=== PATIENT | male | born 1975 | race Caucasian/White ===

== ENCOUNTER 2021-09-24 15:01 | Emergency (ER) | payer OTHER ==
[~2021-09-24] VITALS: Ht 167.6 cm; Wt 81.7 kg
--- OUTSIDE RECORDS SUMMARY | 2021-09-24 15:04 | XMS ---
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 EAriela VISIT COUNT (12 MO.) 1 MARELY Will TOTAL 1 NOTE: Visits indicate total known visits. ED/UCC VISIT TRACKING (12 MO.) 09/24/2021 15:02 MARELY Garcia OR TYPE: Emergency COMPLAINT: - LT WRIST INJURY INPATIENT VISIT TRACKING (12 MO.) No inpatient visits to display in this time frame [email or web address]
[2021-09-24] MEDS ORDERED: LISINOPRIL-HCT1 EACH PO (15:19)
[2021-09-24] MEDS ORDERED: ALPRAZOLAM1 MG PO (15:19)
== END 2021-09-24 17:15 | disposition home or self-care (01) ==
LOC: ED 15:01
DX: S69.92XA Unspecified injury of left wrist, hand and finger(s), initial encounter (principal); Y04.8XXA Assault by other bodily force, initial encounter; I10 Essential (primary) hypertension; Z88.8 Allergy status to other drugs, medicaments and biological substances; Z79.899 Other long term (current) drug therapy
CPT/HCPCS: 73130; 99283-25

== ENCOUNTER 2024-10-17 06:45 | Emergency (ER) | payer OTHER ==
[~2024-10-17] VITALS: Ht 167.6 cm; Wt 80.2 kg
[~2024-10-17 06:45] MED LIST: ALPRAZOLAM1 MG PO; LISINOPRIL-HCT1 EACH PO; METFORMIN HCL500 MG; NORVASC10 MG PO; PREDNISONE20 MG PO
[2024-10-17] MEDS ORDERED: VENLAFAXINE HCL75 MG PO (07:27)
[2024-10-17] MEDS ORDERED: GABAPENTIN300 MG PO (07:27)
[2024-10-17 09:12] VITALS: BP 151/86
== END 2024-10-17 09:12 | disposition home or self-care (01) ==
LOC: ED 06:45
DX: S40.011A Contusion of right shoulder, initial encounter (principal); I10 Essential (primary) hypertension; W22.01XA Walked into wall, initial encounter; Z79.899 Other long term (current) drug therapy; Z79.52 Long term (current) use of systemic steroids
CPT/HCPCS: 73030; 99283

== ENCOUNTER 2025-02-09 05:28 | Day surgery (SDC) | payer OTHER ==
[~2025-02-09] VITALS: Ht 170.2 cm; Wt 75.0 kg
[~2025-02-09 05:28] MED LIST changes: +ALLER-TEC10 MG PO; +GABAPENTIN300 MG PO; +LACTATED RINGER'S 1,000 ML IV SCH; +VENLAFAXINE HCL75 MG PO; +VITAMIN B12500 MCG PO; +VITAMIN D3125 MC1 PO
[2025-02-09 06:05] VITALS: BP 141/74
--- NOTE | 2025-02-09 06:16 | NUR ---
DAD WITH PT .
[2025-02-09] MEDS ORDERED: DEXAMETHASONE SOD PHOS 10 MG/ML VIAL ONE (06:26)
[2025-02-09] MEDS ORDERED: Ropivacaine HCl 0.5% 30 ML VIAL ONE (06:29)
[2025-02-09] MEDS ORDERED: MIDAZOLAM HCL 2 MG/2 ML VIAL ONE (06:29)
[2025-02-09] MEDS ORDERED: LIDOCAINE HCL 2% 20 MG/ML VIAL INJ ONE (06:29)
[2025-02-09] MEDS ORDERED: fentaNYL citrate 100 MCG/2 ML VIAL ONE (06:29)
[2025-02-09] MEDS ORDERED: CEFAZOLIN SODIUM 2 GM in SODIUM CHLORIDE 0.9% 100 ML IV SCH (07:00)
[2025-02-09] MEDS ORDERED: LIDOCAINE HCL 1% 5 ML SDV INJ ONE (07:00)
[2025-02-09] MEDS ORDERED: IBLOOD GLUCOSE TEST STRIP 1 EA TEST VI PRN ×2 (07:00→07:30)
[2025-02-09] MEDS ORDERED: HYDROCODONE/ACETA 7.5/325 TAB PO PRN (07:00)
[2025-02-09] MEDS ORDERED: TRANEXAMIC ACID IN NACL,ISO-OS 1,000 MG/100 ML PIGGYBACK IV SCH (07:00)
[2025-02-09] MEDS ORDERED: NALOXONE HCL 0.4 MG SYR IV PRN (07:30)
[2025-02-09] MEDS ORDERED: fentaNYL citrate 50 MCG/ML SDV IV PRN (07:30)
[2025-02-09] MEDS ORDERED: PROCHLORPERAZINE EDISYLATE 10 MG/2 ML VIAL IV PRN (07:30)
[2025-02-09] MEDS ORDERED: HYDROmorphone HCL 1 MG/ML SYR IV PRN (07:30)
[2025-02-09] MEDS ORDERED: VASOPRESSIN 20 UNITS/ML VIAL ONE (07:48)
[2025-02-09] MEDS ORDERED: LACTATED RINGER'S 1,000 ML IV ONE (08:06)
[2025-02-09] MEDS ORDERED: HYDROCODON-ACE1 EA11 PO (08:14)
[2025-02-09] MEDS ORDERED: DICLOFENAC SODI75 MG PO (08:14)
[2025-02-09] MEDS ORDERED: DICLOFENAC SOD 75 MG TABEC PO SCH (09:00)
[2025-02-09 09:02] VITALS: BP 152/76
--- NOTE | 2025-02-09 09:20 | NUR ---
DAD AT BS. CALL LIGHT GIVEN.
--- NOTE | 2025-02-09 09:47 | OR ---
[facility] [address], [place] [address] Signed DATE OF OPERATION: 02/09/2025 SURGEON: Hanh Sutton MD PREOPERATIVE DIAGNOSIS: Rotator cuff tear, right shoulder. POSTOPERATIVE DIAGNOSIS: Rotator cuff tear, right shoulder. PROCEDURE PERFORMED: Right shoulder arthroscopy with arthroscopic rotator cuff repair. 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 ANESTHESIA: General. BLOOD LOSS: Minimal. IMPLANTS: 4.75 SwiveLock x2. BRIEF HISTORY: Gustavo is a 49-year-old gentleman with a history of an industrial accident here at the hospital and he suffered a rotator cuff tear. Risks and benefits of operative treatment were discussed with him. He elected to proceed. Once consent was obtained, he was taken to the operating room. After adequate anesthesia, he was placed on the OR table in a beach chair position. All downside pressure points were well padded. The shoulder was prepped and draped in a standard sterile fashion. The shoulder was injected with 15 mL of 0.25% Marcaine with epinephrine as was subacromial space. Standard posterior portal was made and the scope was introduced in the shoulder. ARTHROSCOPIC FINDINGS: Glenohumeral surfaces were intact. The biceps and biceps anchor and labrum were intact. The rotator cuff was known to be torn just posterior to the biceps interval about 1.5 cm. The remainder of the posterior rotator cuff was intact. Subacromial space showed moderate bursitis. Electronically Signed By: HANH SUTTON MD 02/09/25 0947 PATIENT NAME: GUSTAVO ROSAS OPERATIVE REPORT DATE OF : 71 REPORT #: [id number] PHYSICIAN: HANH SUTTON MD PCP: JUAN CARLOS LOPEZ PAC REPORT IS CONFIDENTIAL AND NOT TO BE RELEASED WITHOUT AUTHORIZATION [facility] [address], [place] [address] Signed DESCRIPTION OF OPERATION: Diagnostic arthroscopy was undertaken as noted above. The anterolateral portal was established and the shaver was introduced through the rotator cuff tear into the shoulder and the undersurface of the rotator cuff was debrided of nonviable tissue. The scope was then withdrawn, placed in subacromial space and a combination of the shaver and the Mitek VAPR were used to remove the bursa to allow visualization. The tuberosity was then cleared of soft tissue using again the Mitek VAPR and shaver and the bone was slightly decorticated. Once this was accomplished, the free edge of the rotator cuff tear was trimmed and two FiberTape sutures were placed in an inverted mattress configuration through this. The two sutures were then placed through separate anchors about 5 mm apart in the tuberosity. The sutures were tightened as the anchors were inserted. Excellent apposition against the bone was noted. There was excellent bleeding from the anchors and the bony surface. The suture ends were cut. The scope was withdrawn. Portals were closed with 3-0 nylon and dressed with Allevyn and an OpSite. He tolerated the procedure well. All sponge, needle, and instrument counts were correct. Hanh Sutton MD BA/MODL /[id number] Copies: ~ Electronically Signed By: HANH SUTTON MD 02/09/25 0947 PATIENT NAME: GUSTAVO ROSAS OPERATIVE REPORT DATE OF : 71 REPORT #: [id number] PHYSICIAN: HANH SUTTON MD PCP: JUAN CARLOS LOPEZ PAC REPORT IS CONFIDENTIAL AND NOT TO BE RELEASED WITHOUT AUTHORIZATION
--- NOTE | 2025-02-09 09:51 | NUR ---
sat 94 to 97 % off o2 .
[2025-02-09 10:04] VITALS: BP 151/68
--- NOTE | 2025-02-09 10:07 | NUR ---
HAS TAKEN WATER AND CRACKERS. VOIDED 400MLS IN PACU. STATES HES READY TO GO HOME.
--- NOTE | 2025-02-09 10:27 | NUR ---
REVIEWED CRYOCUFF AND IMMOBILIZER/SLING WITH PT AND DAD. DC INSTRUCTIONS REVIEWED AND EDUCATION HANDOUTS AND SHOULDER INSTRUCTION SHEET FROM DR TRISTAN OFFICE. STATES HE UNDERSTANDS AND NO QUESTIONS.
[2025-02-09] MEDS ORDERED: SEVOFLURANE 250 ML BTL INH ONE (11:43)
--- NOTE | 2025-02-09 12:45 | NUR ---
02/09/25 1245 Sheets,Carline 0871 PT ARRIVED TO PACU AND WAKES EASILY. PT REORIENTED TO PACU AND DENIES CONCERNS. PT UNABLE TO MOVE RIGHT SHOULDER AND EDUCATION GIVEN ON BLOCK. SHOULDER IMMOBILIZER IN PLACE FROM OR.
== END 2025-02-09 10:15 | disposition home or self-care (01) ==
LOC: DS 05:28
PROVIDERS: ATTEND Specialist
PROC: 0LM14ZZ Reattachment of Right Shoulder Tendon, Percutaneous Endoscopic Approach (ICD-10-PCS; principal; 2025-02-09 07:00)
DX: M75.111 Incomplete rotator cuff tear or rupture of right shoulder, not specified as traumatic (principal); M75.51 Bursitis of right shoulder; Z88.8 Allergy status to other drugs, medicaments and biological substances; I10 Essential (primary) hypertension; E11.9 Type 2 diabetes mellitus without complications; E78.00 Pure hypercholesterolemia, unspecified
CPT/HCPCS: 01630; 64415; J0688; J1100; J2250; J2704; J2795; J3010; J7121